=== PATIENT | male | born 1960 | race African-American/Black ===

== ENCOUNTER 2017-03-24 00:52 | Emergency (ER) | payer OTHER ==
[2017-03-24 01:39] VITALS: BP 149/104; PULSE 120; TEMP 99.1; BMI 27.5
--- NOTE | 2017-03-24 01:41 | PDOC ---
History of Present Illness - General Chief Complaint: Alcohol intoxication Stated Complaint: ANKLE PAIN/INTOXICATED Time Seen by Provider: 03/24/17 01:08 History Source: Patient Exam Limitations: Intoxication - History of Present Illness Initial Comments: 03/24/17 01:34 Patient is a 56M with history of cardiac pacemaker/AICD here today via EMS and police for intoxication. Patient was found down in the street and rain. Patient initially tried to run, but fell favoring his right leg after a couple of steps. Patient gives a vague story about falling, but is generally not oriented to place and situation. Patient refuses to answer medical history questions. He says that it hurts all over. Past History - Past Medical History Allergies/Adverse Reactions: Allergies Allergy/AdvReac Type Severity Reaction Status Date / Time No Known Allergies Allergy Verified 03/24/17 01:11 Home Medications: Ambulatory Orders Aspirin [ASA -] 81 mg PO DAILY 02/16/15 Furosemide [Lasix -] 40 mg PO DAILY 04/16/16 Hydralazine HCl [Apresoline -] 50 mg PO TID 04/16/16 Carvedilol [Coreg -] 25 mg PO BID #60 tablet 04/17/16 Ramipril 10 mg PO BID #60 capsule 04/17/16 Anemia: No Asthma: No Cancer: No Cardiac Disorders: Yes (CHF/DEFIBRILATOR) CVA: No COPD: No CHF: Yes (2007) Dementia: No Diabetes: No GI Disorders: No (RECTAL BLEEDING) Disorders: No HTN: Yes Hypercholesterolemia: No Liver Disease: No Seizures: No Thyroid Disease: No - Surgical History Abdominal Surgery: No Appendectomy: No Cardiac Surgery: Yes (AICD IMPLANTED 10/01) Cholecystectomy: No Lung Surgery: No Neurologic Surgery: No Orthopedic Surgery: No - Psycho/Social/Smoking Cessation Hx Anxiety: No Suicidal Ideation: No Smoking Status: No Smoking History: Unknown if ever smoked Have you smoked in the past 12 months: Yes Number of Cigarettes Smoked Daily: 1 If you are a former smoker, when did you quit?: 2 YEARS 'Breaking Loose' booklet given: 04/16/16 Hx Alcohol Use: Yes Drug/Substance Use Hx: No Hx Substance Use Treatment: No (Patient dmits he used in the past, last one was on Saturday evening prior to ) Review of Systems - Review of Systems Able to Perform ROS?: No (2/2 patient intox/conf) *Physical Exam - Vital Signs Last Vital Signs Temp Pulse Resp BP Pulse Ox 99.1 F 120 H 20 149/104 94 L 03/24/17 01:08 03/24/17 01:08 03/24/17 01:08 03/24/17 01:08 03/24/17 01:08 - Physical Exam Comments: 03/24/17 01:38 GENERAL: Awake, alert, oriented to self. Not oriented to time, place and situation. In moderate distress, disheveled, covered in mud HEAD: No signs of trauma, normocephalic, atraumatic, no hemotympanum EYES: PERRLA, EOMI, sclera anicteric, conjunctiva clear ENT: Auricles normal inspection, hearing grossly normal, nares patent and clear , oropharynx clear without exudates. Moist mucosa NECK: Normal ROM, supple, no lymphadenopathy, JVD, or masses LUNGS: No distress, speaks full sentences, clear to auscultation bilaterally CHEST: Nontender to palpation, AICD/pacemaker implant LEGS: Nontender to palpation, neurovascularly intact. ARMS: Nontender to palpation, neurovascularly intact. HEART: Tachycardic, regular rhythm, normal S1 and S2, no murmurs, rubs or gallops, peripheral pulses normal and equal bilaterally. ABDOMEN: Soft, nontender, normoactive bowel sounds. No guarding, no rebound. No masses EXTREMITIES: Normal inspection, Normal range of motion, no edema. No clubbing or cyanosis. NEUROLOGICAL: Cranial nerves II through XII grossly intact. Slurred speech no focal sensorimotor deficits ED Treatment Course - LABORATORY CBC & Chemistry Diagram: 03/24/17 01:38 03/24/17 01:38 - RADIOLOGY Radiology Studies Ordered: Category Date Time Status CERVICAL SPINE CT W/O CONTR [CT] Stat CT Scan 03/24/17 01:[address] WITHOUT CONTRAST [CT] Stat CT Scan 03/24/17 01:29 Ordered CHEST X-RAY PORTABLE* [RAD] Stat Radiology 03/24/17 01:29 Ordered Medical Decision Making - Medical Decision Making 03/24/17 01:44 56M with AICD/Pacemaker and otherwise unknown history here today complaining of intoxication. Unknown if patient has any trauma or mechanism. Cannot clear head or spine due to intoxication. Refused to put on C-collar. No obvious signs of trauma. Will do cbc, cmp, ua, utox, ct head, ct chest, trop, ecg, etoh level to evaluate. Patient currently on monitoring. 03/24/17 01:57 Fingerstick glucose 169 03/24/17 02:03 EKG shows sinus tachycardia (113 bpm), QTc 466, T-wave inversions in I, avL. ST depression in V5 and V6. No ST elevation 03/24/17 02:52 Laboratory Tests 03/24/17 03/24/17 03/24/17 01:38 01:38 01:38 WBC 11.5 H D Hgb 15.6 D Hct 47.2 Plt Count 187 D INR Sodium Potassium Chloride Carbon Dioxide BUN Creatinine AST ALT Alkaline Phosphatase Ur Leukocyte Esterase Negative Urine RBC 1 Urine WBC 1 Opiates Screen Positive Cocaine Screen Positive Alcohol, Quantitative 03/24/17 03/24/17 03/24/17 01:38 01:38 01:38 WBC Hgb Hct Plt Count INR 1.12 Sodium 137 Potassium 4.2 Chloride 99 Carbon Dioxide 22 BUN 13 Creatinine 1.8 H AST 38 H D ALT 51 Alkaline Phosphatase 80 Ur Leukocyte Esterase Urine RBC Urine WBC Opiates Screen Cocaine Screen Alcohol, Quantitative < 5.0 Tox positive for cocain and opiates. EtOH negative. Cr 1.8, possible EMMANUELLE. UA neg. Labs otherwise unremarkable. Trop pending. 03/24/17 04:14 CT scans show intact cervical spine and no acute intracranial pathology. Patient updated on condition. Refused further treatment. Risks of leaving now explained. Patient demonstrated understanding of risks and was alert and oriented x 4. Signed AMA. *DC/Admit/Observation/Transfer Diagnosis at time of Disposition: AMA - Signed out against medical advice - Discharge Dispostion Disposition: AGAINST MEDICAL ADVICE Condition at time of disposition: Stable Admit: No
[2017-03-24 01:57] LABS: BASOPHIL 0.3 % (0-2.0); MCH 27.7 pg (25.7-33.7); MEAN PLT VOLUME 8.1 fl (7.5-11.1); NEUTROPHILS 85.2 % (42.8-82.8); PLATELET COUNT 187 K/MM3 (134-434); RDW 13.4 % (11.9-15.9); WHITE BLOOD COUNT 11.5 K/mm3 (4.0-10.0)
[2017-03-24 02:04] LABS: INR 1.12 (0.82-1.09); PROTHROMBIN TIME (PATIENT) 12.4 SEC (9.98-11.88)
[2017-03-24 02:05] LABS: URINE APPEARANCE CLEAR; URINE BILIRUBIN NEGATIVE (NEGATIVE); URINE BLOOD 1+ (NEGATIVE); URINE COLOR LTYELLOW; URINE GLUCOSE (UA) NEGATIVE (NEGATIVE); URINE KETONE TRACE (NEGATIVE); URINE LEUK ESTERASE NEGATIVE (NEGATIVE); URINE NITRITE NEGATIVE (NEGATIVE); URINE UROBILINOGEN NEGATIVE mg/dL (0.2-1.0)
[2017-03-24 02:06] LABS: URINE PROTEIN 2+ (NEGATIVE)
[2017-03-24 02:17] LABS: ALBUMIN 4.2 g/dl (3.4-5.0); ALK PHOS 80 U/L (45-117); ANION GAP 16 (8-16); BILIRUBIN,TOTAL 0.6 mg/dL (0.2-1.0); CALCIUM 9.1 mg/dL (8.5-10.1); CO2 22 mmol/L (21-32); CREATININE 1.8 mg/dL (0.7-1.3); GLUCOSE,RANDOM 149 mg/dL (74-106); SGPT/ALT 51 U/L (12-78); TOT PROT 8.1 g/dl (6.4-8.2)
[2017-03-24 02:18] LABS: URINE HYALINE CAST 3 /lpf; URINE MUCUS RARE; URINE RBC 1 /hpf (0-3); URINE WBC 1 /hpf (3-5)
[2017-03-24 02:20] LABS: URINE MARIJUANA THC NEGATIVE ng/ml (CUTOFF=50)
[2017-03-24 02:23] LABS: SGOT/AST 38 U/L (15-37)
[2017-03-24] MEDS ORDERED: SODIUM CHLORIDE 500 ML IV STA (03:06)
[2017-03-24 03:09] LABS: TROPONIN I 0.07 ng/ml (0.00-0.05)
--- NOTE | 2017-03-24 13:19 | EKG ---
Test Reason : Blood Pressure : / mmHG Vent. Rate : 113 BPM Atrial Rate : 113 BPM P-R Int : 160 ms QRS Dur : 096 ms QT Int : 340 ms P-R-T Axes : 078 058 124 degrees QTc Int : 466 ms SINUS TACHYCARDIA BIATRIAL ENLARGEMENT INTRAVENTRICULAR CONDUCTION DELAT OF THE LBBB TYPE. ABNORMAL ECG WHEN COMPARED WITH ECG OF 16-APR-2016 14:07, VENT. RATE HAS INCREASED BY 57 BPM WIDENING OF QRS COMPLEXES REPEAT EKG IF CLINICALLY INDICATED Confirmed by DAVID OCAMPO MD ([id number] on 03/24/2017 1:19:03 PM Referred By: Confirmed By:DAVID OCAMPO MD
== END 2017-03-24 04:30 | disposition left against medical advice (07) ==
LOC: JER 00:52
DX: F10.120 Alcohol abuse with intoxication, uncomplicated (principal); I10 Essential (primary) hypertension; I50.9 Heart failure, unspecified; Z95.810 Presence of automatic (implantable) cardiac defibrillator
CPT/HCPCS: 36415; 70450-TC; 71010-TC; 72125-TC; 80053; 80307; 81003; 81015; 82553; 84484; 85025; 85610; 93005; 93010; 99281-25

== ENCOUNTER 2017-07-30 13:45 | Emergency (ER) | payer SELFPAY ==
[2017-07-30 14:09] VITALS: TEMP 97.7; BMI 26.9
--- NOTE | 2017-07-30 14:11 | PDOC ---
History of Present Illness - General History Source: Patient Exam Limitations: No Limitations - History of Present Illness Initial Comments: 07/30/17 14:46 The patient is a 56-year-old male, with a significant past medical history of cardiac pacemaker/AICD, who presents to the ED with left-sided abdominal pain that began at 1 PM today. 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 The patient reports feeling dizzy and lightheaded at that time and had to breast puller. He states that the pain was initially sharp in sensation and now has become dull. Pt reports eating a sandwich earlier today that he left out for a couple of hours. He denies any fever, chills, nausea, vomiting, or diarrhea. He denies any chest pain or shortness of breath. <Ceci Drake - Last Filed: 07/30/17 14:46> <Mague Sweet - Last Filed: 08/03/17 22:44> - General Chief Complaint: Pain Stated Complaint: ABD PAIN Time Seen by Provider: 07/30/17 14:09 Past History <Ceci Drake - Last Filed: 07/30/17 14:46> - Past Medical History Anemia: No Asthma: No Cancer: No Cardiac Disorders: Yes (CHF/DEFIBRILATOR) CVA: No COPD: No CHF: Yes (2007) Dementia: No Diabetes: No GI Disorders: (RECTAL BLEEDING) Disorders: No HTN: Yes Hypercholesterolemia: No Liver Disease: No Seizures: No Thyroid Disease: No - Surgical History Abdominal Surgery: No Appendectomy: No Cardiac Surgery: Yes (AICD IMPLANTED 10/01) Cholecystectomy: No Lung Surgery: No Neurologic Surgery: No Orthopedic Surgery: No - Suicide/Smoking/Psychosocial Hx Smoking Status: No Smoking History: Never smoked Have you smoked in the past 12 months: Yes Number of Cigarettes Smoked Daily: 2 If you are a former smoker, when did you quit?: 2 YEARS Information on smoking cessation initiated: Yes 'Breaking Loose' booklet given: 07/30/17 Hx Alcohol Use: No Drug/Substance Use Hx: No Hx Substance Use Treatment: No (Patient dmits he used in the past, last one was on Saturday evening prior to ) <Mague Sweet - Last Filed: 08/03/17 22:44> - Past Medical History Allergies/Adverse Reactions: Allergies Allergy/AdvReac Type Severity Reaction Status Date / Time No Known Allergies Allergy Verified 07/30/17 13:49 Home Medications: Ambulatory Orders Aspirin [ASA -] 81 mg PO DAILY 02/16/15 Furosemide [Lasix -] 40 mg PO DAILY 04/16/16 Hydralazine HCl [Apresoline -] 50 mg PO TID 04/16/16 Carvedilol [Coreg -] 25 mg PO BID #60 tablet 04/17/16 Ramipril 10 mg PO BID #60 capsule 04/17/16 Review of Systems - Review of Systems Able to Perform ROS?: Yes Comments:: 07/30/17 14:51 GENERAL/CONSTITUTIONAL: No fever or chills. No weakness. HEAD, EYES, EARS, NOSE AND THROAT: No change in vision. No ear pain or discharge. No sore throat. CARDIOVASCULAR: (+)lightheaded. No chest pain or shortness of breath. RESPIRATORY: No cough, wheezing, or hemoptysis. SKIN: No rash GASTROINTESTINAL: (+)Left-sided abdominal pain. No nausea, vomiting, diarrhea or constipation. GENITOURINARY: No dysuria, frequency, or change in urination. MUSCULOSKELETAL: No joint or muscle swelling or pain. No neck or back pain. NEUROLOGIC: (+)dizziness. No headache, vertigo, loss of consciousness, or change in strength/sensation. ENDOCRINE: No increased thirst. No abnormal weight change. HEMATOLOGIC/LYMPHATIC: No anemia, easy bleeding, or history of blood clots. ALLERGIC/IMMUNOLOGIC: No hives or skin allergy. <Ceic Drake - Last Filed: 07/30/17 14:46> *Physical Exam - Vital Signs Last Vital Signs Temp Pulse Resp BP Pulse Ox 97.7 F 61 18 120/79 97 07/30/17 13:45 07/30/17 13:45 07/30/17 13:45 07/30/17 13:45 07/30/17 13:45 <Ceci Drake - Last Filed: 07/30/17 14:46> - Vital Signs Last Vital Signs Temp Pulse Resp BP Pulse Ox 97.7 F 61 18 120/79 97 07/30/17 13:45 07/30/17 13:45 07/30/17 13:45 07/30/17 13:45 07/30/17 13:45 - Physical Exam Comments: GENERAL: Awake, alert, and fully oriented, in no acute distress HEAD: No signs of trauma EYES: PERRLA, EOMI, sclera anicteric, conjunctiva clear ENT: Auricles normal inspection, hearing grossly normal, nares patent, oropharynx clear without exudates. Moist mucosa NECK: Normal ROM, supple, no lymphadenopathy, JVD, or masses LUNGS: Breath sounds equal, clear to auscultation bilaterally. No wheezes, and no crackles HEART: Regular rate and rhythm, normal S1 and S2, no murmurs, rubs or gallops ABDOMEN: Soft, nontender, +hyperactive bowel sounds. No guarding, no rebound. No masses EXTREMITIES: Normal range of motion, no edema. No clubbing or cyanosis. No cords, erythema, or tenderness NEUROLOGICAL: Cranial nerves II through XII grossly intact. Normal speech, normal gait SKIN: Warm, Dry, normal turgor, no rashes or lesions noted. <Mague Sweet - Last Filed: 08/03/17 22:44> Heart Score/ECG Review - History History: Slightly suspicious - Electrocardiogram EKG: Normal - Age Age: 45-65 - Risk Factors Risk Factors Heart Score: Yes Hx Hypertension Based on the list above the patient has:: 1-2 risk factors - Troponin Troponin: </= normal limit - Score Heart Score - Total: 2 <Mague Sweet - Last Filed: 08/03/17 22:44> ED Treatment Course - LABORATORY CBC & Chemistry Diagram: 07/30/17 14:45 07/30/17 14:45 <Mague Sweet - Last Filed: 08/03/17 22:44> Medical Decision Making - Medical Decision Making Pt with very atypical symptoms for cp. Cardiac enzymes negative. No acute findings on EKG. Stable for DC home. <Mague Sweet - Last Filed: 08/03/17 22:44> *DC/Admit/Observation/Transfer - Attestations Scribe Attestion: 07/30/17 14:55 Documentation prepared by Ceci Drake, acting as medical technical writer for Mague Sweet MD. <Ceci Drake - Last Filed: 07/30/17 14:46> - Discharge Dispostion Admit: No <Sweet,Mague - Last Filed: 08/03/17 22:44> Diagnosis at time of Disposition: Abdominal pain Qualifiers: Abdominal location: left upper quadrant Qualified Code(s): R10.12 - Left upper quadrant pain - Discharge Dispostion Disposition: HOME Condition at time of disposition: Stable - Patient Instructions Printed Discharge Instructions: DI for Abdominal Pain-Adult
[2017-07-30 15:07] LABS: BASO % 0.3 % (0-2.0); EOS % 0.6 % (0-4.5); HEMATOCRIT 44.4 % (35.4-49); HEMOGLOBIN 14.4 GM/dl (11.7-16.9); LYMPH % 14.8 % (8-40); MCH 27.5 pg (25.7-33.7); MCHC 32.5 g/dl (32.0-35.9); MEAN CELL VOLUME 84.8 fl (80-96); MEAN PLT VOLUME 8.4 fl (7.5-11.1); MONO % 9.1 % (3.8-10.2); NEUT % 75.2 % (42.8-82.8); PLATELET COUNT 166 K/MM3 (134-434); RBC 5.24 M/mm3 (4.00-5.60); RDW 12.4 % (11.9-15.9); WHITE BLOOD COUNT 5.9 K/mm3 (4.0-10.8)
[2017-07-30 15:16] LABS: ALK PHOS 68 U/L (32-92); ANION GAP 5 (8-16); BILIRUBIN,TOTAL 0.7 mg/dl (0.2-1.0); BLOOD UREA NITROGEN 12 mg/dl (7-18); CALCIUM 9.2 mg/dl (8.4-10.2); CHLORIDE 100 mmol/L (98-107); CO2 30 mmol/L (22-28); CREATININE 1.2 mg/dl (0.6-1.3); GLUCOSE,RANDOM 95 mg/dl (74-106); LIPASE 18 U/L (22-51); POTASSIUM 3.7 mmol/L (3.5-5.1); SGOT/AST 26 U/L (10-42); SGPT/ALT 31 U/L (10-40); SODIUM 135 mmol/L (136-145); TOT PROT 7.1 g/dl (6.4-8.3)
[2017-07-30 17:32] LABS: TROPONIN I (DFP) 0.04 ng/ml (0.03-0.50)
[2017-07-30 17:57] VITALS: BP 127/89; PULSE 66
--- NOTE | 2017-07-31 08:53 | EKG ---
Test Reason : Blood Pressure : / mmHG Vent. Rate : 054 BPM Atrial Rate : 054 BPM P-R Int : 144 ms QRS Dur : 094 ms QT Int : 486 ms P-R-T Axes : 071 053 027 degrees QTc Int : 460 ms SINUS BRADYCARDIA LEFT ATRIAL ENLARGEMENT LEFT VENTRICULAR HYPERTROPHY WITH REPOLARIZATION ABNORMALITY CANNOT RULE OUT SEPTAL INFARCT , AGE UNDETERMINED ABNORMAL ECG WHEN COMPARED WITH ECG OF 24-MAR-2017 01:40, VENT. RATE HAS DECREASED BY 59 BPM MINIMAL CRITERIA FOR SEPTAL INFARCT ARE NOW PRESENT Confirmed by SUSIE ELIAS MD ([id number]) on 07/31/2017 8:53:19 AM Referred By: DR MARTINEZ Confirmed By:SUSIE ELIAS MD
== END 2017-07-30 18:00 | disposition home or self-care (01) ==
LOC: FER 13:45
DX: R10.12 Left upper quadrant pain (principal); Z95.0 Presence of cardiac pacemaker; I50.9 Heart failure, unspecified; I10 Essential (primary) hypertension; Z87.891 Personal history of nicotine dependence
CPT/HCPCS: 36415; 71045-TC; 80053; 82550; 82553; 83690; 84484; 85025; 93005; 99285-25

== ENCOUNTER 2018-09-05 11:46 | Emergency (ER) | payer OTHER ==
[2018-09-05 11:56] VITALS: TEMP 98.7; BMI 27.5
--- NOTE | 2018-09-05 12:18 | PDOC ---
History of Present Illness - General Chief Complaint: Sore Throat Stated Complaint: SORE THROAT Time Seen by Provider: 09/05/18 11:48 - History of Present Illness Initial Comments: 09/05/18 12:29 Chief complaint: Sore throat, productive cough, fever, body aches History of present illness: Above symptoms for "several weeks" but severe for 2 days. Review of systems: Has felt feverish and chilled but has not taken his temperature. Denies chest pain, shortness of breath, nausea, vomiting, diarrhea , abdominal pain, visual or focal neurologic symptoms, unsteadiness of gait. Admits nasal congestion with watery discharge, yellowish and greenish sputum. Past medical history: Coronary artery disease, CHF, implanted pacemaker and defibrillator for 10 years. No recent angina or other chest pain, and has sensed defibrillator firing only once several years ago during sexual intercourse. 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 Had a flu shot earlier in the season. Family history: Reviewed and noncontributory including early coronary artery disease, metabolic disease including diabetes, and cancer Physical exam: Alert and oriented well-developed well-nourished mild distress due to URI symptoms but cheerful and cooperative Afebrile, vital signs normal HEENT: Moderate nasal congestion, watery nasal discharge, throat mildly injected without exudate swelling or mass. Ears clear. Conjunctivae mildly injected bilaterally Neck supple without bruit mass or nodes Chest clear to P&A, full breath sounds bilaterally, no wheezes rales or rhonchi CV regular without murmur rub or gallop pulses full and symmetric no JVD or edema no bruits Abdomen nondistended. Bowel sounds normal. Soft without mass tenderness organomegaly Extremities no CCE Skin clear, no rash, adequate turgor and wet mucous membranes Neurological intact Impression: Despite flu immunization, this appears to be influenza. Rule out strep. No sign or symptoms of pneumonia or lung involvement Plan: Rapid strep, influenza swab, symptomatic treatment and observation. Further treatment depending on results of flu swab. Past History - Past Medical History Allergies/Adverse Reactions: Allergies Allergy/AdvReac Type Severity Reaction Status Date / Time No Known Allergies Allergy Verified 09/05/18 11:47 Home Medications: Ambulatory Orders Aspirin [ASA -] 81 mg PO DAILY 02/16/15 Furosemide [Lasix -] 40 mg PO DAILY 04/16/16 hydrALAZINE HCL [Apresoline -] 50 mg PO TID 04/16/16 Carvedilol [Coreg -] 25 mg PO BID #60 tablet 04/17/16 Ramipril 10 mg PO DAILY 09/02/18 Azithromycin [Zithromax 250mg Tablets -] 250 mg PO UTDICT #6 tab 09/05/18 Guaifenesin AC [Robitussin-AC] 1 - 2 tsp PO TID PRN #120 ml MDD 6 09/05/18 Anemia: No Asthma: No Cancer: No Cardiac Disorders: Yes (CHF/DEFIBRILLATOR (10YRS AGO)) CVA: No COPD: No CHF: Yes (2007) Dementia: No Diabetes: No GI Disorders: No Disorders: No HTN: Yes Hypercholesterolemia: No Liver Disease: No Seizures: No Thyroid Disease: No - Surgical History Abdominal Surgery: No Appendectomy: No Cardiac Surgery: Yes (defibrillator IMPLANTED 10/01) Cholecystectomy: No Lung Surgery: No Neurologic Surgery: No Orthopedic Surgery: No - Suicide/Smoking/Psychosocial Hx Smoking Status: No Smoking History: Never smoked Have you smoked in the past 12 months: Yes Number of Cigarettes Smoked Daily: 2 If you are a former smoker, when did you quit?: 2 YEARS 'Breaking Loose' booklet given: 07/30/17 Hx Alcohol Use: No Drug/Substance Use Hx: No Substance Use Type: Alcohol Hx Substance Use Treatment: No (Patient dmits he used in the past, last one was on Saturday evening prior to ) *Physical Exam - Vital Signs Last Vital Signs Temp Pulse Resp BP Pulse Ox 98.7 F 77 18 158/107 H 100 09/05/18 11:47 09/05/18 11:47 09/05/18 11:47 09/05/18 11:47 09/05/18 11:47 Moderate Sedation - Procedure Monitoring Vital Signs: Procedure Monitoring Vital Signs Temperature 98.7 F 09/05/18 11:47 Pulse Rate 77 09/05/18 11:47 Respiratory Rate 18 09/05/18 11:47 Blood Pressure 158/107 H 09/05/18 11:47 O2 Sat by Pulse Oximetry (%) 100 09/05/18 11:47 Medical Decision Making - Medical Decision Making 09/05/18 14:50 Strep and influenza are negative Because of the patient's underlying cardiac and pulmonary problems, and the possibility of atypical bronchitis,l bronchitis, abx and close f/u. *DC/Admit/Observation/Transfer Diagnosis at time of Disposition: Viral URI with cough - Discharge Dispostion Disposition: HOME Condition at time of disposition: Stable Decision to Admit order: No - Prescriptions Prescriptions: Azithromycin [Zithromax 250mg Tablets -] 250 mg PO UTDICT #6 tab Guaifenesin AC [Robitussin-AC] 1 - 2 tsp PO TID PRN #120 ml MDD 6 PRN Reason: Cough - Referrals Referrals: Mark Lorenzana MD [Primary Care Provider] - 2 Days - Patient Instructions Printed Discharge Instructions: DI for Viral Upper Respiratory Infection -- Adult - Post Discharge Activity
[2018-09-05] MEDS ORDERED: guaiFENesin/D-METHORPHAN HB 10 ML UNIT-DOSE CUPS PO ONE (12:28)
[2018-09-05] MEDS ORDERED: ACETAMINOPHEN 325 MG TABLET (FP) PO ONE (12:29)
[2018-09-05] MEDS ORDERED: guaiFENesin/D-METHORPHAN HB 10 ML UNIT-DOSE CUPS ONE (12:34)
[2018-09-05] MEDS ORDERED: ACETAMINOPHEN 325 MG TABLET (FP) ONE (12:34)
[2018-09-05 13:30] VITALS: BP 147/100; PULSE 73
== END 2018-09-05 13:31 | disposition home or self-care (01) ==
LOC: FER 11:46
DX: J06.9 Acute upper respiratory infection, unspecified (principal); R05 Cough; B97.89 Other viral agents as the cause of diseases classified elsewhere; Z87.891 Personal history of nicotine dependence; I10 Essential (primary) hypertension; I50.9 Heart failure, unspecified
CPT/HCPCS: 87070; 87804; 87880; 99282-25

== ENCOUNTER 2019-02-02 11:41 | Day surgery (SDC) | payer OTHER ==
[2019-01-30 14:29] VITALS: BMI 28.1
[2019-02-02] MEDS ORDERED: MIDAZOLAM HCL 2 MG/2 ML SINGLE DOSE VIAL ONE ×2 (14:07→14:22)
[2019-02-02] MEDS ORDERED: SUCCINYLCHOLINE CHLORIDE 200 MG/10 ML SYRINGE ONE (14:08)
[2019-02-02] MEDS ORDERED: PROPOFOL 20 ML ONE (14:08)
--- NOTE | 2019-02-02 14:45 | PN ---
Progress Note (short form) - Note Progress Note: UROLOGY NOTE. PT. WITH BPH AND LUTS . BP IS ELEVATED. CASE CANCELLED
[2019-02-02 17:18] VITALS: BP 164/78; PULSE 55; TEMP 97.8
--- NOTE | 2019-02-02 20:47 | OP ---
DATE OF OPERATION: 02/02/2019 The patient is a 58-year-old male with a history of prostatism, including frequency, urgency, terminal dribbling, hesitancy, and feelings of incomplete bladder emptying. Postvoid residuals were between 120 and 150 mL. The patient also has history of nonischemic cardiomyopathy, chronic systolic heart failure status post a [employer] ICD, history of ventricular tachycardia. He had 1 episode of firing 3 years ago during sexual intercourse. He also has nonobstructive coronary artery disease, underwent cardiac catheterization in 2008. He does have a history of cocaine and marijuana use, none recently. He also has history of high blood pressure. The patient's past surgical history is the ICD placement. He is on Coreg, ramipril, hydralazine, Lasix, and aspirin, for which he stopped 4 days earlier. He denies any allergies. He no longer smokes cigarettes. Physical exam revealed a well-developed adult male in no apparent distress. Chest is clear. Heart is regular. Abdomen is soft. There was no CVA tenderness. Extremities revealed full range of motion with no cyanosis, clubbing, or edema. Prostate was 3+, smooth, benign, and nontender. IMPRESSION AT PRESENT: Benign prostatic hypertrophy with lower urinary tract symptoms, increased postvoid residual. Patient had a renal ultrasound, which revealed normal upper tracts. He will undergo cystourethroscopy and a transurethral vaporization, transurethral resection of the prostate. Procedure explained in detail to patient and he agrees. WHITLEY PERALES M.D. [id number]
== END 2019-02-02 16:30 | disposition home or self-care (01) ==
LOC: JASU-SURG 11:41
PROVIDERS: ATTEND Urology
PROC: 0VC08ZZ Extirpation of Matter from Prostate, Via Natural or Artificial Opening Endoscopic (ICD-10-PCS; principal; 2019-02-02 13:00)
DX: N40.1 Benign prostatic hyperplasia with lower urinary tract symptoms (principal); I10 Essential (primary) hypertension; R39.15 Urgency of urination; R35.0 Frequency of micturition; I25.10 Atherosclerotic heart disease of native coronary artery without angina pectoris; Z87.891 Personal history of nicotine dependence; I42.8 Other cardiomyopathies; Z53.8 Procedure and treatment not carried out for other reasons

== ENCOUNTER 2020-10-01 17:10 | Emergency (ER) | payer OTHER ==
[2020-10-01 17:30] VITALS: BP 108/72; PULSE 67; TEMP 98.2; BMI 26.7
[2020-10-01] MEDS ORDERED: LACTATED RINGERS SOLUTION 1000 ML INFUS.BAG IV ONE (18:18)
[2020-10-01 18:48] LABS: BASO % 1.3 % (0-2.0); HEMATOCRIT 39.8 % (35.4-49); HEMOGLOBIN 13.4 GM/dL (11.7-16.9); LYMPH % 21.5 % (8-40); MCH 28.6 pg (25.7-33.7); MCHC 33.6 g/dl (32.0-35.9); MEAN CELL VOLUME 85.2 fl (80-96); MEAN PLT VOLUME 7.6 fl (7.5-11.1); MONO % 13.2 % (3.8-10.2); PLATELET COUNT 210 K/MM3 (134-434); RBC 4.67 M/mm3 (4.00-5.60); RDW 13.6 % (11.9-15.9); WHITE BLOOD COUNT 5.1 K/mm3 (4.0-10.0)
[2020-10-01 19:04] LABS: POTASSIUM 4.2 mmol/L (3.5-5.1)
[2020-10-01 19:06] LABS: CALCIUM 8.6 mg/dL (8.5-10.1)
[2020-10-01 19:07] LABS: ALBUMIN 3.7 g/dl (3.4-5.0); BLOOD UREA NITROGEN 16.5 mg/dL (7-18); MAGNESIUM 2.2 mg/dL (1.8-2.4)
[2020-10-01 19:10] LABS: CREATININE 1.3 mg/dL (0.55-1.3)
[2020-10-01 19:11] LABS: BILIRUBIN,TOTAL 0.4 mg/dL (0.2-1)
[2020-10-01 19:12] LABS: TOT PROT 7.2 g/dl (6.4-8.2)
== END 2020-10-01 19:45 | disposition home or self-care (01) ==
LOC: JER 17:10
DX: R42 Dizziness and giddiness (principal)
CPT/HCPCS: 36415; 80053; 83735; 85025; 93005; 93010; 99284-25

== ENCOUNTER 2020-12-27 04:39 | Inpatient (IN) | payer OTHER ==
[2020-11-28 15:25] VITALS: BMI 26.2
[2020-12-27] MEDS ORDERED: MIDAZOLAM HCL 2 MG/2 ML SINGLE DOSE VIAL ONE ×3 (13:46→20:01)
[2020-12-27] MEDS ORDERED: PROPOFOL 20 ML ONE ×3 (13:46→15:09)
[2020-12-27] MEDS ORDERED: ceFAZolin SODIUM 1 GM VIAL ONE (14:48)
[2020-12-27] MEDS ORDERED: ONDANSETRON 4 MG/2 ML VIAL IVPUSH PRN (15:51)
[2020-12-27] MEDS ORDERED: PROMETHAZINE HCL 25 MG/1 ML VIAL IVPUSH PRN (15:51)
[2020-12-27] MEDS ORDERED: oxyCODONE HCL 5 MG TABLET PO PRN ×2 (15:51→17:15)
[2020-12-27] MEDS: ACETAMINOPHEN 1000 MG/100 ML VIAL (NON FORMULARY) IVPB ONE ×2 (16:00→17:00)
[2020-12-27] MEDS ORDERED: LACTATED RINGERS SOLUTION 1,000 ML IV SCH (16:00)
[2020-12-27] MEDS ORDERED: ACETAMINOPHEN INJECTION 100 ML IVPB ONE (16:29)
[2020-12-27] MEDS ORDERED: ACETAMINOPHEN 325 MG TABLET (FP) PO PRN (17:15)
[2020-12-27] MEDS ORDERED: HYDROmorphone HCl 2 MG/ML VIAL ONE (17:24)
[2020-12-27] MEDS ORDERED: cefTRIAXone SODIUM 1 GM VIAL IVPB ONE (17:30)
[2020-12-27] MEDS: HYDROmorphone HCl 2 MG/ML VIAL IVPUSH ONE (17:30)
[2020-12-27] MEDS ORDERED: ONDANSETRON 4 MG/2 ML VIAL ONE (17:31)
[2020-12-27 19:47] LABS: HEMATOCRIT 40.4 % (35.4-49); HEMOGLOBIN 13.6 GM/dL (11.7-16.9); MCH 28.1 pg (25.7-33.7); MCHC 33.7 g/dl (32.0-35.9); MEAN CELL VOLUME 83.2 fl (80-96); MEAN PLT VOLUME 8.2 fl (7.5-11.1); PLATELET COUNT 146 K/MM3 (134-434); RBC 4.86 M/mm3 (4.00-5.60); RDW 13.4 % (11.9-15.9); WHITE BLOOD COUNT 6.7 K/mm3 (4.0-10.0)
[2020-12-27] MEDS ORDERED: LIDOCAINE HCL 2% 100 MG/5 ML DISP.SYRIN ONE (19:55)
[2020-12-27] MEDS ORDERED: LIDOCAINE HCL 1%, 10 MG/ML (20ML VIAL) ONE (20:00)
[2020-12-27] MEDS: MIDAZOLAM HCL 2 MG/2 ML SINGLE DOSE VIAL IVPUSH ONE (20:02)
[2020-12-27 20:04] LABS: BLOOD UREA NITROGEN 9.8 mg/dL (7-18); CALCIUM 8.5 mg/dL (8.5-10.1)
[2020-12-27 20:07] LABS: CREATININE 1.1 mg/dL (0.55-1.3)
[2020-12-27] MEDS: LACTATED RINGERS SOLUTION 1,000 ML/1,000 ML INFUS.BAG IV SCH (20:15)
[2020-12-27] MEDS ORDERED: GENTAMICIN SO4 80 MG/2 ML VIAL ONE (20:43)
[2020-12-27] MEDS: hydrALAZINE HCL 50 MG TABLET (FP) PO SCH (21:51)
[2020-12-27] MEDS: CARVEDILOL 25 MG TABLET (FP) PO SCH (21:52)
[2020-12-27] MEDS ORDERED: CHLORHEXIDINE GLUCONATE 4% CLEANSER FOR DECOLONIZATION TP SCH (22:00)
[2020-12-27] MEDS ORDERED: ATORVASTATIN CA 10 MG TABLET (FP) PO SCH (22:00)
[2020-12-27] MEDS: DEXTROSE 5% IVPB SCH (22:24)
[2020-12-27] MEDS: WATER IVPB SCH (22:24)
[2020-12-27] MEDS: GENTAMICIN IVPB SCH (22:24)
[2020-12-27] MEDS: MUPIROCIN 2% TOPICAL OINTMENT FOR DECOLONIZATION NS SCH (23:30)
[2020-12-28] MEDS: DEXTROSE 5% IVPB SCH ×3 (04:32→17:31)
[2020-12-28] MEDS: GENTAMICIN IVPB SCH ×3 (04:32→17:31)
[2020-12-28] MEDS: WATER IVPB SCH ×3 (04:32→17:31)
[2020-12-28] MEDS: hydrALAZINE HCL 50 MG TABLET (FP) PO SCH ×3 (06:00→21:11)
[2020-12-28 07:29] LABS: HEMATOCRIT 36.9 % (35.4-49); HEMOGLOBIN 12.4 GM/dL (11.7-16.9); MCH 27.9 pg (25.7-33.7); MCHC 33.5 g/dl (32.0-35.9); MEAN CELL VOLUME 83.2 fl (80-96); MEAN PLT VOLUME 8.1 fl (7.5-11.1); PLATELET COUNT 151 K/MM3 (134-434); RBC 4.44 M/mm3 (4.00-5.60); RDW 13.3 % (11.9-15.9); WHITE BLOOD COUNT 10.3 K/mm3 (4.0-10.0)
[2020-12-28 08:06] LABS: CALCIUM 8.2 mg/dL (8.5-10.1)
[2020-12-28 08:07] LABS: ALBUMIN 3.1 g/dl (3.4-5.0); MAGNESIUM 1.9 mg/dL (1.8-2.4)
[2020-12-28 08:09] LABS: PHOSPHOROUS 2.2 mg/dL (2.5-4.9)
[2020-12-28 08:10] LABS: BILIRUBIN,TOTAL 0.4 mg/dL (0.2-1); CREATININE 0.9 mg/dL (0.55-1.3)
[2020-12-28 08:14] LABS: TOT PROT 6.1 g/dl (6.4-8.2)
[2020-12-28] MEDS ORDERED: ACETAMINOPHEN 1000 MG/100 ML VIAL (NON FORMULARY) IVPB ONE (08:55)
[2020-12-28] MEDS: CARVEDILOL 25 MG TABLET (FP) PO SCH ×2 (09:28→21:11)
[2020-12-28] MEDS: MUPIROCIN 2% TOPICAL OINTMENT FOR DECOLONIZATION NS SCH (09:29)
[2020-12-28] MEDS: LACTATED RINGERS SOLUTION 1,000 ML/1,000 ML INFUS.BAG IV SCH ×2 (09:30→16:52)
[2020-12-28] MEDS ORDERED: FUROSEMIDE 20 MG TABLET (FP) PO SCH (10:00)
[2020-12-28] MEDS ORDERED: RAMIPRIL 5 MG CAPSULE PO SCH (10:00)
[2020-12-28] MEDS ORDERED: amLODIPine BESYLATE 10 MG TABLET (FP) PO SCH (10:00)
[2020-12-28] MEDS ORDERED: ASPIRIN 81 MG CHEWABLE TABLETS PO SCH (10:00)
[2020-12-28] MEDS ORDERED: PT OWN MED DRAWER 7, Y5N ONE ×2 (10:38→17:09)
[2020-12-28] MEDS ORDERED: NAPH,MB-DB/K PH,MBDB POWDER PACKET PO ONE (11:04)
[2020-12-28] MEDS ORDERED: oxyCODONE HCL 5 MG TABLET PO PRN (15:28)
[2020-12-28] MEDS ORDERED: ACETAMINOPHEN 325 MG TABLET (FP) PO PRN (15:28)
[2020-12-28] MEDS ORDERED: PROMETHAZINE HCL 25 MG/1 ML VIAL IVPUSH PRN (15:28)
[2020-12-28] MEDS ORDERED: ONDANSETRON 4 MG/2 ML VIAL IVPUSH PRN (15:28)
[2020-12-28] MEDS: MIDAZOLAM HCL 2 MG/2 ML SINGLE DOSE VIAL IVPUSH ONE (16:50)
[2020-12-28] MEDS: HYDROmorphone HCl 2 MG/ML VIAL IVPUSH ONE (17:07)
[2020-12-28] MEDS: oxyCODONE HCL 5 MG TABLET PO PRN (17:36)
[2020-12-28] MEDS: ATORVASTATIN CA 10 MG TABLET (FP) PO SCH (21:11)
[2020-12-28] MEDS: CHLORHEXIDINE GLUCONATE 4% CLEANSER FOR DECOLONIZATION TP SCH (21:14)
[2020-12-28] MEDS ORDERED: MUPIROCIN 2% TOPICAL OINTMENT FOR DECOLONIZATION NS SCH (22:00)
[2020-12-29] MEDS ORDERED: PT OWN MED DRAWER 7, Y5N ONE (01:59)
[2020-12-29] MEDS: DEXTROSE 5% IVPB SCH ×2 (02:22→09:01)
[2020-12-29] MEDS: GENTAMICIN IVPB SCH ×2 (02:22→09:01)
[2020-12-29] MEDS: WATER IVPB SCH ×2 (02:22→09:01)
[2020-12-29] MEDS: hydrALAZINE HCL 50 MG TABLET (FP) PO SCH ×3 (06:05→21:36)
[2020-12-29] MEDS: CEFTRIAXONE 1 GM in DEXTROSE 5%-WATER - 50 ML IVPB SCH ×2 (06:15→07:32)
[2020-12-29 07:30] LABS: BASO % 0.2 % (0-2.0); EOS % 0.6 % (0-4.5); HEMOGLOBIN 11.3 GM/dL (11.7-16.9); LYMPH % 12.9 % (8-40); MCH 27.8 pg (25.7-33.7); MCHC 34.2 g/dl (32.0-35.9); MEAN CELL VOLUME 81.4 fl (80-96); MEAN PLT VOLUME 7.8 fl (7.5-11.1); MONO % 14.6 % (3.8-10.2); NEUT % 71.7 % (42.8-82.8); PLATELET COUNT 120 K/MM3 (134-434); RBC 4.05 M/mm3 (4.00-5.60); RDW 13.5 % (11.9-15.9); WHITE BLOOD COUNT 7.1 K/mm3 (4.0-10.0)
[2020-12-29 07:48] LABS: BLOOD UREA NITROGEN 7.1 mg/dL (7-18)
[2020-12-29 07:50] LABS: CALCIUM 8.2 mg/dL (8.5-10.1)
[2020-12-29 07:51] LABS: PHOSPHOROUS 2.5 mg/dL (2.5-4.9)
[2020-12-29] MEDS: LACTATED RINGERS SOLUTION 1,000 ML/1,000 ML INFUS.BAG IV SCH ×3 (08:22→21:35)
[2020-12-29] MEDS: oxyCODONE HCL 5 MG TABLET PO PRN ×4 (08:33→22:18)
[2020-12-29] MEDS: FUROSEMIDE 20 MG TABLET (FP) PO SCH (08:59)
[2020-12-29] MEDS: amLODIPine BESYLATE 10 MG TABLET (FP) PO SCH (08:59)
[2020-12-29] MEDS: CARVEDILOL 25 MG TABLET (FP) PO SCH ×2 (08:59→21:36)
[2020-12-29] MEDS: ASPIRIN 81 MG CHEWABLE TABLETS PO SCH (09:00)
[2020-12-29] MEDS: RAMIPRIL 5 MG CAPSULE PO SCH (09:00)
[2020-12-29] MEDS ORDERED: DEXTROSE 5%-WATER - 50 ML IVPB ONE ×2 (11:11→17:28)
[2020-12-29] MEDS ORDERED: PIPERACILLIN/TAZOBACTAM 3.375 GM VIAL IVPB ONE ×2 (11:11→17:28)
[2020-12-29] MEDS: PIPERACILLIN/TAZOB 3.375 GM 3.375 GM in DEXTROSE 5%-WATER - 50 ML IVPB SCH ×2 (11:25→17:46)
[2020-12-29] MEDS ORDERED: POTASSIUM CHLORIDE TABS 20 MEQ TABLET.ER (FP) PO ONE (12:30)
[2020-12-29] MEDS: ATORVASTATIN CA 10 MG TABLET (FP) PO SCH (21:35)
[2020-12-29] MEDS: CHLORHEXIDINE GLUCONATE 4% CLEANSER FOR DECOLONIZATION TP SCH (21:36)
[2020-12-30] MEDS ORDERED: PIPERACILLIN/TAZOBACTAM 3.375 GM VIAL IVPB ONE ×2 (01:28→09:17)
[2020-12-30] MEDS ORDERED: DEXTROSE 5%-WATER - 50 ML IVPB ONE ×2 (01:28→09:17)
[2020-12-30] MEDS: PIPERACILLIN/TAZOB 3.375 GM 3.375 GM in DEXTROSE 5%-WATER - 50 ML IVPB SCH ×2 (01:40→09:23)
[2020-12-30] MEDS: oxyCODONE HCL 5 MG TABLET PO PRN ×2 (03:26→07:50)
[2020-12-30] MEDS: hydrALAZINE HCL 50 MG TABLET (FP) PO SCH ×2 (05:37→13:44)
[2020-12-30 07:32] LABS: HEMATOCRIT 31.5 % (35.4-49); HEMOGLOBIN 10.7 GM/dL (11.7-16.9); MCH 27.9 pg (25.7-33.7); MCHC 34.1 g/dl (32.0-35.9); MEAN CELL VOLUME 81.9 fl (80-96); MEAN PLT VOLUME 7.7 fl (7.5-11.1); PLATELET COUNT 118 K/MM3 (134-434); RBC 3.84 M/mm3 (4.00-5.60); RDW 13.4 % (11.9-15.9); WHITE BLOOD COUNT 4.9 K/mm3 (4.0-10.0)
[2020-12-30 08:04] LABS: BLOOD UREA NITROGEN 5.8 mg/dL (7-18); CALCIUM 7.9 mg/dL (8.5-10.1); MAGNESIUM 1.7 mg/dL (1.8-2.4)
[2020-12-30 08:07] LABS: CREATININE 0.9 mg/dL (0.55-1.3); PHOSPHOROUS 2.9 mg/dL (2.5-4.9)
[2020-12-30] MEDS: FUROSEMIDE 20 MG TABLET (FP) PO SCH (09:24)
[2020-12-30] MEDS: amLODIPine BESYLATE 10 MG TABLET (FP) PO SCH (09:24)
[2020-12-30] MEDS: CARVEDILOL 25 MG TABLET (FP) PO SCH (09:24)
[2020-12-30] MEDS: RAMIPRIL 5 MG CAPSULE PO SCH (09:24)
[2020-12-30] MEDS: ASPIRIN 81 MG CHEWABLE TABLETS PO SCH (09:24)
[2020-12-30] MEDS ORDERED: MAGNESIUM SULF 50% (8.12 MEQ/2 ML-1 GM VIAL) IVPB ONE (11:09)
[2020-12-30] MEDS ORDERED: MAGNESIUM OXIDE 400 MG TABLET (FP) PO ONE (11:30)
[2020-12-30 14:49] VITALS: BP 120/58; PULSE 56; TEMP 98.2
== END 2020-12-30 15:27 | disposition home or self-care (01) | DRG 988 ==
LOC: JASUSAT 04:39 → JASU-SURG 04:39 → JERBED 21:00 → JICU 21:13 → J8W 12-28 15:35
PROVIDERS: ADMIT Urology; ATTEND Student in an Organized Health Care Education/Training Program
PROC: 0V508ZZ Destruction of Prostate, Via Natural or Artificial Opening Endoscopic (ICD-10-PCS; principal; 2020-12-27 12:30)
PROC: 0VB08ZZ Excision of Prostate, Via Natural or Artificial Opening Endoscopic (ICD-10-PCS; 2020-12-27 12:30)
PROC: 0T9B30Z Drainage of Bladder with Drainage Device, Percutaneous Approach (ICD-10-PCS; 2020-12-28)
DX: N99.71 Accidental puncture and laceration of a genitourinary system organ or structure during a genitourinary system procedure (principal); N99.820 Postprocedural hemorrhage of a genitourinary system organ or structure following a genitourinary system procedure; R39.0 Extravasation of urine; I42.8 Other cardiomyopathies; Y83.8 Other surgical procedures as the cause of abnormal reaction of the patient, or of later complication, without mention of misadventure at the time of the procedure; I25.10 Atherosclerotic heart disease of native coronary artery without angina pectoris; N40.1 Benign prostatic hyperplasia with lower urinary tract symptoms; E78.5 Hyperlipidemia, unspecified; I11.0 Hypertensive heart disease with heart failure; I50.9 Heart failure, unspecified; Z95.810 Presence of automatic (implantable) cardiac defibrillator; R50.9 Fever, unspecified
CPT/HCPCS: 36415; 74018-TC-FY; 74176-TC; 80048; 80053; 83735; 84100; 85025; 85027; 86850; 86900; 86901; 88305-TC; 94760; C9803; J0131; U0003; U0005

== ENCOUNTER 2022-04-05 05:16 | Day surgery (SDC) | payer OTHER ==
[2022-04-04 14:05] VITALS: BMI 27.6
[2022-04-05 13:01] VITALS: RESP 16
[2022-04-05 13:52] VITALS: BP 146/80; PULSE 53; TEMP 97
== END 2022-04-05 13:10 | disposition home or self-care (01) ==
LOC: JASU-ENDO 05:16
PROVIDERS: ATTEND Internal Medicine Gastroenterology
PROC: 0DJD8ZZ Inspection of Lower Intestinal Tract, Via Natural or Artificial Opening Endoscopic (ICD-10-PCS; principal; 2022-04-05 11:15)
DX: K62.5 Hemorrhage of anus and rectum (principal); K64.8 Other hemorrhoids